=== PATIENT | female | born 1935 | race Caucasian/White ===

== ENCOUNTER 2017-12-16 14:54 | Observation (INO) ==
[2017-12-16 15:57] LABS: Basophils % 0.4 %; Eosinophils # 0.1 K/mcL (0.0-0.6); Eosinophils % 0.7 %; Hematocrit 44.1 % (35.3-44.9); Hemoglobin 14.7 g/dL (11.5-15.4); Immature Granulocytes % 0.3 % (0-4); Lymphocytes # 1.6 K/mcL (0.6-4.6); Lymphocytes % 21.8 %; Mean Corpuscular HGB Conc 33.3 g/dL (31.6-35.5); Mean Corpuscular Hemoglobin 30.9 pg (28.0-33.3); Mean Corpuscular Volume 92.6 fL (83.0-100.0); Mean Platelet Volume 9.3 fL (9.4-12.4); Monocytes # 0.4 K/mcL (0.0-1.3); Monocytes % 5.7 %; Neutrophils # 5.2 K/mcL (1.6-8.9); Platelet Count 189 K/mcL (140-400); Red Blood Count 4.76 M/mcL (3.82-4.97); Red Cell Distribution Width 12.9 % (11.5-14.5); Segmented Neutrophils % 71.1 %
[2017-12-16 16:05] LABS: Prothrombin Time 10.6 Seconds (9.4-12.1)
[2017-12-16 16:07] LABS: Activated Partial Thrombo Time 27.3 Seconds (26.0-36.0)
[2017-12-16 16:17] LABS: Troponin I < 0.03 ng/mL (< 0.04)
[2017-12-16 16:18] LABS: BUN/Creatinine Ratio 21 (6-26); Blood Urea Nitrogen 18 mg/dL (8-23); Calcium 9.8 mg/dL (8.6-10.3); Carbon Dioxide 24 mEq/L (23-29); Chloride 105 mEq/L (98-107); Glucose 99 mg/dL (70-105); Osmolality,Calculated 286 (280-300); Potassium 3.7 mEq/L (3.5-5.1); Sodium 137 mEq/L (136-145); eGFR For African Americans > 60 (> 60); eGFR For Non-African Americans > 60 (> 60)
--- NOTE | 2017-12-16 21:10 | Emergency Department Note ---
Disposition Clinical Impression: Syncope Qualifiers: Syncope type: unspecified Qualified Code(s): R55 - Syncope and collapse Disposition: Admitted As Inpatient Condition: Good Referrals: Ron Black MD [Primary Care Provider] - Time of Disposition: 21:15 Syncope HPI - General Chief Complaint: ED General Medical Stated Complaint: Vomiting, Diarrhea, possible syncope Time Seen by Provider: 12/16/17 19:04 Source: patient Limitations: no limitations Nursing Notes Reviewed: Yes Vital Signs Reviewed: Yes - History of Present Illness HPI Narrative: Mrs. Carlson, 82-year-old female, presents from home with her 3 daughters bedside for evaluation of a single visit. Occurred earlier this afternoon. Patient is highly functioning and lives at home alone. She was mowing her lawn with a more approximate 20 minutes. She did not feel that she was exerting herself. Once done, she went to her daughter's house which was next-door and had been sitting for approximately 10 minutes having a normal conversation when she yawned several times and went unresponsive. There she did lose postural tone, she did not fall. She vomited multiple times (did not choke; she was upright at that time) and was incontinent of bowel 1. At this time, patient feels at baseline. PMH: Hyperlipidemia Patient has no history of hypertension, CAD, ACS, or cardiac dysrhythmia. No history of pulmonary disease. ROS: Positive: As above Negative: Fever, chills, nausea, chest pain, palpitations, dyspnea, diaphoresis , headache, changes in vision, weakness, numbness, tingling, trauma - Related Data Home Medications Medication Instructions Recorded Confirmed Ascorbic Acid [Vitamin C] 1,000 mg PO DAILY 04/17/15 04/17/15 Aspirin 81 mg PO DAILY 04/17/15 04/17/15 Calcium 600 + D Tablet 600 mg PO 1-3XD 04/17/15 04/17/15 Ezetimibe/Simvastatin [Vytorin 10 mg PO DAILY 04/17/15 04/17/15 10-20 mg Tablet] Levothyroxine [Synthroid] 75 mcg PO 0630 04/17/15 04/17/15 [place]-3 Fatty Acids [Fish Oil] 1,200 mg PO DAILY 04/17/15 04/17/15 Potassium Chloride 8 meq PO DAILY 04/17/15 04/17/15 Previous Rx's Medication Instructions Recorded HYDROcodone/Acet 5/325 mg [Strawberry 1 tab PO Q8HR PRN #15 tablet 04/17/15 5-325 mg] Oxycodone HCl/Acetaminophen 1 each PO Q4HR #10 tablet 05/22/16 [Percocet 5-325 mg Tablet] Allergies Allergy/AdvReac Type Severity Reaction Status Date / Time No Known Allergies Allergy Verified 04/17/15 07:09 All systems ED: reviewed and negative except as stated. Review of Systems: As Per HPI Past Medical History - Past Medical History Medical history: Reports: hyperlipidemia, osteoporosis, thyroid disease Surgical history: Reports: hysterectomy Psychiatric history: Reports: no psych history PIE FILLING MIXER history: Reports: no PIE FILLING MIXER history - Social History Smoking Status: Never smoker Smokeless Tobacco Status: No Alcohol use: Reports: rarely Drug use: Reports: none Physical Exam Vital Signs Reviewed General: Patient is alert, oriented, and in no acute distress. Head: atraumatic, normocephalic Eye: normal appearance, PERRL, EOMI, no scleral icterus, no conjunctival injection ENT: mucous membranes moist, normal external ear exam Neck: normal inspection, trachea midline, full ROM Chest: normal inspection, symmetric chest rise Respiratory: Good respiratory effort. Bilateral breath sounds are clear without wheezing, crackles, or rhonchi. Cardiovascular: Regular rate and rhythm. No clicks, rubs, gallops, or murmors. Normal heart sounds. Abdomen: Bowel sounds present normoactive x-4 quadrants. Abdomen is soft, nondistended, and nontender. No guarding or rebound. No organomegaly noted. Musculoskeletal: Spontaneously moving all extremities. Skin: warm, dry, intact. Neuro: Alert and oriented x4. Sensation light touch intact. Psych: Patient's affect is appropriate for situation. - General Limitations: no limitations General appearance: alert, in no apparent distress Course Course Narrative: Patient had syncope while sitting. With associated vomiting and incontinence of bowels. Concerning for cardiac in etiology. No evidence of third-degree block on EKG. Patient and daughters are in agreement to admission for telemetry and continue monitoring. Patient is currently at baseline and has no complaints. Chest x-ray is unremarkable. Laboratory workup is unremarkable; specifically normal troponin and normal BNP. Vital Signs Temperature 98.1 F 12/16/17 15:20 Pulse Rate 84 12/16/17 15:20 Respiratory Rate 18 04/13/18 15:20 Blood Pressure 185/82 12/16/17 15:20 O2 Sat by Pulse Oximetry 96 12/16/17 15:20 Temperature 98.1 F 12/16/17 15:20 Pulse Rate 84 12/16/17 15:20 Respiratory Rate 18 12/16/17 15:20 Blood Pressure 185/82 12/16/17 15:20 O2 Sat by Pulse Oximetry 96 12/16/17 15:20 Oxygen Delivery Oxygen Delivery Room Air Syncope - Lab Data Result diagrams: 12/16/17 15:27 12/16/17 15:27 Lab Results 12/16/17 12/16/17 12/16/17 Range/Units 15:27 15:27 15:27 WBC 7.3 (4.3-11.1) K/mcL RBC 4.76 (3.82-4.97) M/mcL Hgb 14.7 (11.5-15.4) g/dL Hct 44.1 (35.3-44.9) % MCV 92.6 (83.0-100.0) fL MCH 30.9 (28.0-33.3) pg MCHC 33.3 (31.6-35.5) g/dL RDW 12.9 (11.5-14.5) % Plt Count 189 (140-400) K/mcL MPV 9.3 L (9.4-12.4) fL Immature Gran % 0.3 (0-4) % Seg Neutrophils % 71.1 % Lymphocytes % 21.8 % Monocytes % 5.7 % Eosinophils % 0.7 % Basophils % 0.4 % Neutrophils # 5.2 (1.6-8.9) K/mcL Lymphocytes # 1.6 (0.6-4.6) K/mcL Monocytes # 0.4 (0.0-1.3) K/mcL Eosinophils # 0.1 (0.0-0.6) K/mcL Basophils # 0.0 (0.0-0.2) K/mcL PT 10.6 (9.4-12.1) Seconds INR 1.0 APTT 27.3 (26.0-36.0) Seconds Sodium 137 (136-145) mEq/L Potassium 3.7 (3.5-5.1) mEq/L Chloride 105 (98-107) mEq/L Carbon Dioxide 24 (23-29) mEq/L BUN 18 (8-23) mg/dL Creatinine 0.84 (0.60-1.20) mg/dL Est GFR ( Amer) > 60 (> 60) Est GFR (Non-Af Amer) > 60 (> 60) BUN/Creatinine Ratio 21 (6-26) Glucose 99 (70-105) mg/dL Calculated Osmolality 286 (280-300) Calcium 9.8 (8.6-10.3) mg/dL Troponin I < 0.03 (< 0.04) ng/mL
--- NOTE | 2017-12-16 21:21 | Emergency Department Note ---
START Narrative - START START: I examined this patient and my medical decision-making was reviewed with the Resident Physician. I agree with the documented findings, disposition and treatment plan as described except to the extent set forth below. 82 yo F presented to the ER for syncope. Patient had been out using the lawnmower earlier this evening. Came in and sat down and felt fine and then all of a sudden had a syncopal episode with bowel incontinence and unresponsiveness. This was witnessed by her family member. Patient will need to be admitted for ACS evaluation and arrhythmia evaluation. Her workup here thus far is unremarkable. She feels at her baseline.
[2017-12-17] MEDS ORDERED: Naloxone 0.4 MG/ML INJ IVP PRN (00:24)
[2017-12-17] MEDS ORDERED: Acetaminophen 325 MG TABLET PO PRN (00:24)
[2017-12-17] MEDS ORDERED: IPRATROPIUM BROMIDE NS PRN (00:27)
--- NOTE | 2017-12-17 00:53 | Internal Med History&Physical ---
Date of Encounter: 12/17/17 Time of Encounter: 00:05 Internal Medicine - H&P: HPI Chief complaint: syncope Admitted From: Emergency Dept Plans for Post Hospital Care: Home History of present illness: Ms. Carlson is a 82 year old female who presents to the ER today after having sustained a syncopal event earlier. She was sitting at a table and chair talking with her daughter when she suddenly slumped over and had an acute syncopal event. This was witnessed by her daughter. She was unarousable for several minutes. She did maintain her respirations and had a palpable pulse. She had no seizure activity. Shortly after awakening, she had several bouts of emesis. EMS was called and her glucose level was in the 190 range, roughly 1 hour after eating a meal. She was brought to the ER where she was seen, evaluated, and then admitted to the hospitalist service. Upon my assessment of the patient, she is awake, alert, and denies any complaints. She denies any chest pain, shortness of breath, lightheadedness, dizziness, or palpitations. She does not recall passing out, but she remembers having several bouts of emesis after awakening. She does admit to having occasional extra beats or skipped beats on her heart rhythm. She denies any history of heart disease, diabetes, or stroke. She denies any history of seizure disorder. She denies any recent head trauma. She feels well now and has no complaints. Her daughter is present as well and confirms above history. Past Med Surg Social Fam HX - Past Medical History Attestation: Yes The following information was validated with the patient. Source: patient, old records reviewed Medical history: hyperlipidemia, osteoporosis, thyroid disease Psychiatric history: no psych history - Past Surgical History Surgical History: hysterectomy - Social History Smoking Status: Never smoker Smokeless Tobacco Status: No Alcohol use: rarely Drug use: none Current living situation: Home - Independent Activity Level: Independent ambulation Recent Out of Country Travel Within the Last 8 Weeks: No - Family History Mother Living Status: Age at : 53 Cause of : colon cancer Father Living Status: Age at : 68 Cause of : heart attack Brother Living Status: Age at : 49 Cause of : heart attack Sister Hx Family Cardiac Disorders: Yes (atrial fibrillation) Hx Family Cancer: Yes (breast cancer) Internal Medicine - H&P: Meds Calcium Carbonate/Vitamin D3 [Calcium 600 + Vit D Tablet] 1 each PO TID [History] [place]-3 Fatty Acids [Fish Oil] 1,200 mg PO DAILY 04/17/15 [History] Cetirizine HCl [Zyrtec] 10 mg PO DAILY 12/16/17 [History] Docusate [Colace] 100 mg PO BID 12/16/17 [History] Dorzolamide/Timolol [Cosopt] 1 drop BOTH EYES BID 12/16/17 [History] Ipratropium [place] 2 spray NS DAILY PRN 12/16/17 [History] Levothyroxine [Synthroid] 88 mcg PO 0630 12/16/17 [History] Lovastatin [Mevacor] 20 mg PO HS 12/16/17 [History] Mv,Ca,Iron,Min/FA/Phytosterol [Centrum [facility] Heart Tab] 1 each PO DAILY [History] Potassium 198 mg PO DAILY 12/16/17 [History] Vit C/Vit E/Lutein/Min/[place]-3 [Ocuvite Softgel] 1 each PO DAILY 12/16/17 [ History] 3 Allergy/AdvReac Type Severity Reaction Status Date / Time No Known Allergies Allergy Verified 04/17/15 07:09 - Constitutional Constitutional: no chills, no fever(s), no night sweats, no weakness - EENT Eyes: no blurry vision, no change in vision Ears: no ear pain, no tinnitus Nose, mouth and throat: no nasal congestion, no nasal discharge, no sinus pressure, no sore throat - Cardiovascular Cardiovascular ROS IM: syncope, no chest pain, no diaphoresis, no dyspnea, no dyspnea on exertion, no edema, no lightheadedness, no orthopnea, no palpitations , no paroxysmal nocturnal dyspnea - Respiratory Respiratory: no cough, no dyspnea, no hemoptysis, no dyspnea on exertion, no wheezing, no chest congestion, no excessive phlegm production, no change in phlegm color, no pain with cough - Gastrointestinal Gastrointestinal: no abdominal pain, no diarrhea, no hematemesis, no hematochezia, no melena, no nausea, no vomiting - Genitourinary Genitourinary: no dysuria, no flank pain, no hematuria - Musculoskeletal Musculoskeletal ROS IM: no arthralgias, no back pain, no muscle cramps - Integumentary Integumentary IM: no rash, no jaundice - Neurological Neurological ROS: no dizziness, no focal weakness, no frequent falls, no headache(s), no weakness - Psychiatric Psychiatric: no anxiety, no depression - Endocrine Endocrine IM: no polydipsia, no polyuria - Hematologic/Lymphatic Hematologic/Lymphatic: no easy bruising, no lymphadenopathy - Allergic/Immunologic Allergic/Immunologic: no tongue swelling, no throat swelling, no wheezing, no GI upset with certain foods - Constitutional Vitals: Temp Pulse Resp BP Pulse Ox 98.3 F 75 16 152/78 98 12/16/17 23:35 12/16/17 23:35 12/16/17 23:35 12/16/17 23:35 12/16/17 23:35 General appearance: Present: cooperative, A&O X 3, pleasant, no acute distress, answers questions appropriately - Head Head exam: Present: atraumatic, normal inspection - Eye Eye exam: Present: EOMI, normal appearance, PERRL. Absent: scleral icterus Pupils: Present: normal accommodation - ENT ENT exam: Present: mucous membranes moist, normal exam, normal oropharynx - Neck Neck exam general surgery: Present: full ROM, supple. Absent: lymphadenopathy, normal inspection, tenderness, nuchal rigidity, thyromegaly - Expanded Neck Exam Neck exam: Absent: carotid bruit - Respiratory Respiratory exam: Present: CTAB. Absent: chest wall tenderness, rales, respiratory distress, rhonchi, wheezes - Cardiovascular Cardiovascular exam: Present: RRR, +S1, +S2. Absent: bradycardia, diastolic murmur, JVD, systolic murmur, tachycardia Additional comments: + ectopic heart beat noted on auscultation - GI/Abdominal GI/Abdominal exam: Present: normal bowel sounds, soft. Absent: guarding, hepatomegaly, mass, rebound, splenomegaly, tenderness - Extremities Exam Extremities exam: Present: full ROM, normal capillary refill, warm, radial pulses palpable and symmetrical. Absent: calf tenderness, joint swelling, pedal edema, tenderness - Back Exam Back exam: Present: normal inspection. Absent: CVA tenderness (L), CVA tenderness (R) - Neurological Exam Neurological exam: Present: alert, CN II-XII intact, oriented X3, no focal deficits - Psychiatric Psychiatric exam: Present: normal affect, normal mood - Skin Skin exam: Present: dry, warm. Absent: rash Internal Med - H&P Results - Labs CBC & Chem 7: 12/16/17 15:27 12/16/17 15:27 - EKG Data -: EKG Interpreted by Myself EKG shows normal: sinus rhythm - EKG Data Prior EKG available for review: no EKG comments: 12/17/17 00:58 NSR; no acute ST-T changes noted - Diagnostic Studies Chest x-ray Status: image reviewed by me (right paratracheakl widening -- CT chest recommended) - Assessment and plan (1) Syncope Current Visit: Yes Status: Acute Assessment and plan: 1. Will cycle troponins, EKG's, and monitor glucose levels. 2. Will order ECHO and Carotid Dopplers. 3. Recommend outpatient stress in the coming weeks if above work-up negative. 4. If indicated, further inpatient cardiac work-up will be performed. 5. Will order chest CT as recommended by radiology to assess right paratracheal abnormality. Qualifiers: Syncope type: unspecified Qualified Code(s): R55 - Syncope and collapse (2) Hypothyroid Current Visit: Yes Status: Chronic Assessment and plan: 1. Continue home medication. 2. Check TSH. Qualifiers: Hypothyroidism type: unspecified Qualified Code(s): E03.9 - Hypothyroidism , unspecified (3) DVT prophylaxis Current Visit: Yes Status: Acute Assessment and plan: 1. Heparin SQ.
[2017-12-17] MEDS ORDERED: Isovue-370 500 ML INFUS..BTL IV ONE (01:04)
[2017-12-17 02:05] LABS: Basophils % 0.3 %; Eosinophils # 0.1 K/mcL (0.0-0.6); Eosinophils % 0.8 %; Hematocrit 39.3 % (35.3-44.9); Immature Granulocytes % 0.2 % (0-4); Lymphocytes # 2.2 K/mcL (0.6-4.6); Mean Corpuscular HGB Conc 33.1 g/dL (31.6-35.5); Mean Corpuscular Hemoglobin 30.4 pg (28.0-33.3); Mean Platelet Volume 10.7 fL (9.4-12.4); Monocytes # 0.6 K/mcL (0.0-1.3); Monocytes % 9.7 %; Platelet Count 191 K/mcL (140-400); Red Blood Count 4.27 M/mcL (3.82-4.97); Red Cell Distribution Width 12.9 % (11.5-14.5)
[2017-12-17 02:13] LABS: Activated Partial Thrombo Time 27.4 Seconds (26.0-36.0)
[2017-12-17 02:29] LABS: Alanine Aminotransferase 23 Units/L (7-52); Albumin 3.7 g/dL (3.5-5.7); Albumin/Globulin Ratio 1.3 (1.1-2.2); Alkaline Phosphatase 58 Units/L (34-104); Aspartate Amino Transferase 23 Units/L (13-39); BUN/Creatinine Ratio 32 (6-26); Bilirubin,Total 0.4 mg/dL (0.3-1.0); Blood Urea Nitrogen 20 mg/dL (8-23); Calcium 9.2 mg/dL (8.6-10.3); Carbon Dioxide 24 mEq/L (23-29); Chloride 106 mEq/L (98-107); Chol/HDL Ratio 3.1 (0-4.9); Cholesterol 237 mg/dL (< 200); Globulin 2.9 g/dL (2.4-3.5); Glucose 93 mg/dL (70-105); HDL Cholesterol 76 mg/dL (40-59); LDL Cholesterol,Calculated 130 mg/dL (0-99); Magnesium 1.9 mg/dL (1.6-2.6); Osmolality,Calculated 290 (280-300); Potassium 3.6 mEq/L (3.5-5.1); Sodium 139 mEq/L (136-145); Total Protein 6.6 g/dL (6.4-8.9); Triglycerides 155 mg/dL (< 150); eGFR For African Americans > 60 (> 60); eGFR For Non-African Americans > 60 (> 60)
[2017-12-17 02:38] LABS: Thyroid Stimulating Hormone 4.171 mcIU/mL (0.340-5.600)
[2017-12-17] MEDS: *HR* Heparin 5,000 UNIT/ML VIAL SQ SCH ×2 (06:36→18:35)
[2017-12-17] MEDS: Dorzolamide/Timolol OPTH 10 ML BOTTLE BOTH EYES SCH ×2 (09:13→21:17)
[2017-12-17] MEDS: (Ocuvite Softgel) PO SCH (09:14)
[2017-12-17] MEDS: Multivit/Ca/Min/Fe/FA 1 TAB TABLET PO SCH (09:14)
[2017-12-17] MEDS: Loratadine 10 MG TABLET PO SCH (09:14)
[2017-12-17] MEDS: Patient Taking Own Medication 1 EACH PO SCH (09:15)
[2017-12-18] MEDS: *HR* Heparin 5,000 UNIT/ML VIAL SQ SCH (05:12)
[2017-12-18 08:13] VITALS: BP 145/75
[2017-12-18] MEDS: Multivit/Ca/Min/Fe/FA 1 TAB TABLET PO SCH (10:23)
[2017-12-18] MEDS: (Ocuvite Softgel) PO SCH (10:23)
[2017-12-18] MEDS: Patient Taking Own Medication 1 EACH PO SCH (10:23)
[2017-12-18] MEDS: Dorzolamide/Timolol OPTH 10 ML BOTTLE BOTH EYES SCH (10:24)
[2017-12-18] MEDS: Loratadine 10 MG TABLET PO SCH (10:24)
--- NOTE | 2017-12-18 10:29 | Discharge Summary ---
- NOTES TO OUTPATIENT PROVIDER Notes to Outpatient Provider: Please follow up on echo results and carotid Doppler Orders not resulted at time of discharge: Pending orders 12/17/17 06:00 ECG 12 lead ECG [ECG] AM 0600 12/17/17 11:31 EKG [ECG 12 lead ECG] [ECG] Routine Date of Encounter: 12/18/17 Time of Encounter: 10:00 - Discharge Diagnosis (1) Syncope Priority: Primary Status: Acute Comments: Likely vasovagal. No arrhythmias noted on telemetry. Carotid Doppler and echo are pending. Normal EKG. Negative troponins. Qualifiers: Syncope type: unspecified Qualified Code(s): R55 - Syncope and collapse (2) Hypothyroid Priority: Secondary Status: Chronic Qualifiers: Hypothyroidism type: unspecified Qualified Code(s): E03.9 - Hypothyroidism , unspecified Hospital course: Ms. Carlson is a 82 year old female who presents to the E after having sustained a syncopal event earlier. She was sitting at a table and chair talking with her daughter when she suddenly slumped over and had an acute syncopal event. This was witnessed by her daughter. She was unarousable for several minutes. She did maintain her respirations and had a palpable pulse. She had no seizure activity. Shortly after awakening, she had several bouts of emesis. EMS was called and her glucose level was in the 190 range, roughly 1 hour after eating a meal. She was brought to the ER where she was seen, evaluated, and then admitted to the hospitalist service. She does endorse that it was a really hard day and she was working in her lawn mowing the [employer] prior to this. Over the next 3-4 hours she was observed in the hospital with no events on telemetry. An echo and carotid Doppler was performed results of which are pending at this point in time. ACS was ruled out with a normal electrocardiogram and normal troponins. She had no focal deficits suggestive of stroke. Her physical exam is benign. As such, we concluded that the symptoms and presentation was likely related to vasovagal syncope possibly triggered by excessive heat, exhaustion and vomiting. She was advised to establish contact with her primary care physician to follow-up on the results of the echocardiogram and carotid Dopplers. Her daughter who was bedside is aware of the plan Discharge discussed with: patient, family, nurse - Time Spent with Patient Total time spent providing and/or coordinating discharge services: Greater than 30 minutes - Discharge Medications Home Medications: Calcium Carbonate/Vitamin D3 [Calcium 600 + Vit D Tablet] 1 each PO TID [History] [place]-3 Fatty Acids [Fish Oil] 1,200 mg PO DAILY 04/17/15 [History] Cetirizine HCl [Zyrtec] 10 mg PO DAILY 12/16/17 [History] Docusate [Colace] 100 mg PO BID 12/16/17 [History] Dorzolamide/Timolol [Cosopt] 1 drop BOTH EYES BID 12/16/17 [History] Ipratropium [place] 2 spray NS DAILY PRN 12/16/17 [History] Levothyroxine [Synthroid] 88 mcg PO 0630 12/16/17 [History] Lovastatin [Mevacor] 20 mg PO HS 12/16/17 [History] Mv,Ca,Iron,Min/FA/Phytosterol [Centrum [facility] Heart Tab] 1 each PO DAILY [History] Potassium 198 mg PO DAILY 12/16/17 [History] Vit C/Vit E/Lutein/Min/[place]-3 [Ocuvite Softgel] 1 each PO DAILY 12/16/17 [ History] Calcium Carbonate [Tums] 500 mg PO TID tab.chew 12/18/17 [Rx] Docusate [Colace] 100 mg PO BID capsule 12/18/17 [Rx] Dorzolamide/Timolol [Cosopt] 1 drop BOTH EYES BID bottle 12/18/17 [Rx] Levothyroxine [Synthroid] 88 mcg PO 0630 tablet 12/18/17 [Rx] Loratadine [Claritin] 10 mg PO DAILY tablet 12/18/17 [Rx] Lovastatin [Mevacor] 20 mg PO HS tablet 12/18/17 [Rx] Multivit/Ca/Min/Fe/FA [Thera M Plus] 1 tab PO DAILY tablet 12/18/17 [Rx] Allergies/Adverse Reactions: 3 Allergy/AdvReac Type Severity Reaction Status Date / Time No Known Allergies Allergy Verified 04/17/15 07:09 Date of admission: 12/16/17 21:20 Primary care physician: Ron Black MD Discharging clinician: Braeden Licea Anticipated date of discharge: 12/18/17 - Constitutional Vitals: Temp Pulse Resp BP Pulse Ox 97.5 F L 69 16 145/75 97 12/18/17 08:10 12/18/17 08:10 12/18/17 08:10 12/18/17 08:10 12/18/17 08:10 General appearance: Present: cooperative, A&O X 3, pleasant, no acute distress, answers questions appropriately Exam: Physical exam Gen: Comfortable, laying in bed, in no visible distress HEENT: Normocephalic, atraumatic. No conjunctival icterus. Moist oral mucosa. Extraocular movements intact. Neck: Supple Lungs: Clear to auscultation, no foreign sounds Heart: Normal S1-S2, no murmurs rubs or gallops Abdomen: Normoactive bowel sounds, no guarding rigidity or tenderness Extremities: No edema clubbing or cyanosis Neuro: Alert oriented 3, no focal deficits, no motor or sensory deficits, cranial nerves intact, visual faye intact, negative finger-nose test Skin: No skin lesions - Patient Status Disposition: Home, Self-Care Condition: Good Functional capacity at discharge: independent ambulation Overall status at discharge: patient is back to baseline - Discharge Instructions Additional Instructions: Please follow up results of echocardiogram and carotid Dopplers with your primary care physician physician - Diet and Activity Activity: resume usual activities as tolerated Diet: advance to your usual diet
--- NOTE | 2017-12-23 08:49 | Electrocardiograph Report ---
[place] [id number] Test Date: 2017-12-16 Pat Name: Blessing Carlson Department: 103 Room: [facility] Gender: F Lead Pl Sql Developer: TMR : 1935 Requested By: Reed Bingham Order Number: [id number] Reading MD: David Holloway Measurements Intervals [place] Rate: 65 P: 63 VA: 163 QRS: -22 QRSD: 95 T: 59 QT: 396 QTc: 407 Interpretive Statements SINUS RHYTHM BORDERLINE LEFT AXIS DEVIATION Electronically Signed On 12-23-2017 8:48:23 EDT by David Holloway
--- NOTE | 2017-12-23 09:09 | Electrocardiograph Report ---
[place] [id number] Test Date: 2017-12-17 Pat Name: Blessing Carlson Department: 114 Room: [facility] Gender: F Seed Analyst: EROS : 1935 Requested By: Helio Narvaez MD Order Number: [id number] Reading MD: David Holloway Measurements Intervals [place] Rate: 66 P: 61 ME: 188 QRS: -7 QRSD: 97 T: 46 QT: 441 QTc: 454 Interpretive Statements SINUS RHYTHM WITH FREQUENT VENTRICULAR PREMATURE COMPLEXES LOW QRS VOLTAGE IN EXTREMITY LEADS Electronically Signed On 12-23-2017 9:07:37 EDT by David Holloway
== END 2017-12-18 11:28 | disposition home or self-care (01) ==
LOC: EMEROO 14:54 → 3NENU 14:54 → SUATTDRO 21:20 → 3NENU 23:06
PROVIDERS: ADMIT Internal Medicine; ATTEND Pediatrics